=== PATIENT | male | born 1930 | race Caucasian/White ===

== ENCOUNTER 2019-05-08 23:47 | Observation (INO) | payer MEDICARE ==
[~2019-05-08] VITALS: Ht 165.1 cm
--- NOTE | ~2019-05-08 | HEMODYNAMI ---
PATIENT:RICHARD CORRAL MEDICAL RECORD: [id number] : [birth year] [facility] [id number] ADMISSION DATE: 05/09/19 Generatedon:05/09/201915:43 Patient name: RICHARD CORRAL Patient #: [id number] SS N: : 1930 Date of study: 05/09/2019 Page: Of Hemodynamic Procedure Report Patient Data Patient Demographics Procedure consent was obtained First Name: RICHARD Gender: Male Last Name: ELLIS : 1930 Middle Initial: PETER Age: 88 year(s) Patient #: [id number] Race: Additional ID: [id number] Contact details Address: [address] [place] [address] State: [place] City: [place] Zip code: [address] Past Medical History History of disease Date Diagnosis Comments CAD Hypertension Allergies: No known allergies Admission Admission Data Admission Date: 05/09/2019 Admission Time: 1:21 Room #: 2124 Lab Results Lab Result Date: 05/09/2019 Lab Result Time: 0:00 Biochemistry Name Units Result Min Max BUN mg/dl 11 --(-*--)-- 7 18 Creatinine mg/dl 1 --(--*-)-- 0.6 1.3 eGFR ml/min 75 *-(----)-- 90 120 NONAFRICAN CBC Name Units Result Min Max Hematocrit % 42.2 --(*---)-- 42 54 Hemoglobin g/dl 14.3 --(*---)-- 13.5 17.5 Procedure Procedure Types Cath Procedure Diagnostic Procedure LHC LHC w/Coronaries w/Grafts Sedation Charges Moderate Sedation up to 15 minutes Procedure Description Procedure Date Procedure Date: 05/09/2019 Procedure Start Time: 15:15 Procedure End Time: 15:38 Procedure Staff Name Function Raymundo Bautista MD Performing Physician Bertha Whitfield RT Monitor Judit Rodriguez RT Scrub Juana Henley RN Nurse Procedure Data Cath Procedure Fluoroscopy Diagnostic fluoroscopy Total fluoroscopy Time: 4.9 time: 4.9 min min Diagnostic fluoroscopy Total fluoroscopy dose: 576 dose: 576 mGy mGy Contrast Material Contrast Material Type Amount (ml) Isovue 300 93 Entry Location Entry Primary Successful Side Size Upsize Upsize Entry Closure Succes sful Closure Location (Fr) 1 (Fr) 2 (Fr) Remarks Device Remarks Femoral Right 5 Fr 6 Fr Exoseal artery Long Estimated blood loss: 5 ml Diagnostic catheters Device Type Used For End Catheter Placement MULTIPACK JL 4.0 5Fr Procedure catheter MULTIPACK JL 4.0 5Fr Procedure catheter MULTIPACK 3DRC 5Fr Procedure catheter DIAGNOSTIC AR MOD 5Fr Procedure Catheter ([id number]) MULTIPACK Pigtail 5 Fr Procedure catheter Procedure Complications No complications Procedure Medications Medication Administration Route Dosage 0.9% NaCl I.V. 100 ml/hr Oxygen etCO2 Nasal cannula 2 l/min Lidocaine 2% added to field 20 Heparin Flush Bag added to field 2 bags (1000units/500ml NS) Versed I.V. 2 mg Fentanyl I.V. 50 mcg Hemodynamics Rest HGB: 14.3 (g/dl) Heart Rate: 70 (bpm) Pressure Samples Time Site Value (mmHg) Purpose Heart Use Rate(bpm) 15:30 LV 187/18,32 Snapshot 64 15:30 AO 196/84(128) Pullback 63 15:30 LV 192/21,22 Pullback 63 Gradients Valve Time Site 1 Site 2 Mean SEP/DFP Peak To Heart Use (mmHg) (sec/min) Peak Rate (mmHg) (bpm) Aortic 15:30 LV AO 0 11 0 63 192/21,22 196/84(128) Calculations Valve P-P Mean Valve Index Valve Source Name Gradient Area Flow (cm2) Aortic 0 0 0 0 Snapshots Pre Cath Intra NCS Post Cath Vital Signs Time Heart Resp SPO2 etCO2 NIBP (mmHg) Rhythm Pain Sedation Rate (ipm) (%) (mmHg) Status Level (bpm) 15:07:02 68 16 97 20.4 Measuring NSR 0 (11) 10(A) , No pain 15:07:33 73 17 96 27.2 214/94(161) NSR 0 (11) 10(A) , No pain 15:12:05 66 14 97 31.7 209/97(164) NSR 0 (11) 10(A) , No pain 15:16:44 62 13 97 36.9 173/82(141) NSR 0 (11) 9(A) , No pain 15:21:08 61 14 97 18.1 156/80(139) NSR 0 (11) 9(A) , No pain 15:26:07 64 17 98 36.2 Measuring NSR 0 (11) 9(A) , No pain 15:26:35 65 15 99 12.8 183/90(150) NSR 0 (11) 9(A) , No pain 15:31:04 62 15 98 22.6 175/82(103) NSR 0 (11) 9(A) , No pain 15:35:28 60 15 98 19 184/83(151) NSR 0 (11) 10(A) , No pain Medications Time Medication Route Dose Verified Delivered Reason Notes Eff ectiveness by by 15:05:21 0.9% NaCl I.V. 100 Raymundo Juana used for ml/hr [place]oka Kale procedure MD FOWLER 15:05:29 Oxygen etCO2 2 Raymundo Thompsonyla used for Nasal l/min [facility] procedure cannula MD FOWLER 15:05:35 Lidocaine 2% added 20ml Raymundo Fonseca for local to vial [facility] anesthetic field MD WHITE 15:05:40 Heparin Flush added 2 Raymundo Raymunod used for Bag to bags [facility] procedure (1000units/500ml field MD WHITE NS) 15:14:35 Versed I.V. 2 mg Raymundo Caoa for LilyJamison Henley sedation MD FOWLER 15:14:46 Fentanyl I.V. 50 Raymundo Caoa for mcg Lily Kale sedation pharmaceutical development technician Log Time Note 14:45:13 Juana Henley RN sent for patient. Start room use. 14:53:47 Informed consent obtained and on chart 14:54:11 Procedure Status Elective Heart Cath (OP). 14:54:21 Time tracking: Regular hours (M-F 7:00 - 5:00) 14:54:24 Plan of Care:Hemodynamics will remain stable., Cardiac rhythm will remain stable., Comfort level will be maintained., Respiratory function will remain adequate., Patient/ family verbilizes understanding of procedure., Procedure tolerated without complication., Recovers from procedure without complications.. 14:54:32 H&P Date Dictated: 05/09/2019 New H&P dictated by physician.. 14:54:38 Patient allergic to No known allergies 14:55:37 Patient received from Med II to CCL 2 Alert and oriented. Tansferred to table in Supine position. 14:55:38 Warm blankets applied, and shayy hugger turned on for patient comfort. 14:55:39 Correct patient and procedure confirmed by team. 14:55:39 ECG and BP/O2 sat monitors applied to patient. 15:05:13 Vital chart was started 15:05:21 0.9% NaCl 100 ml/hr I.V. was administered by Juana Henley RN; used for procedure; Verbal order read back and verified. 15:05:29 Oxygen 2 l/min etCO2 Nasal cannula was administered by Juana Henley RN; used for procedure; Verbal order read back and verified. 15:05:35 Lidocaine 2% 20ml vial added to field was administered by Raymundo Bautista MD; for local anesthetic; Verbal order read back and verified. 15:05:40 Heparin Flush Bag (1000units/500ml NS) 2 bags added to field was administered by Raymundo Bautista MD; used for procedure; Verbal order read back and verified. 15:07:48 Baseline sample Acquired. 15:08:01 Rhythm: sinus rhythm 15:08:03 Full Disclosure recording started 15:08:04 Pre-procedure instructions explained to patient. 15:08:04 Pre-op teaching completed and patient verbalized understanding. 15:08:06 Family in patients room. 15:08:15 Patient NPO since Midnight. 15:08:17 Is the patient allergic to Iodine/contrast media? No. 15:09:20 Is patient on blood thinner?No 15:09:22 Patient diabetic? No. 15:09:25 Previous problem with sedation/anesthesia? No ? 15:09:28 Snore? No 15:09:29 Sleep apnea? No 15:09:31 Deviated septum? No 15:09:32 Opens mouth fully? Yes 15:09:33 Sticks out tongue? Yes 15:09:34 Airway obstruction? No ? 15:09:38 Dentures? Yes IN 15:09:41 Pre procedure: right dorsailis pedis pulse 1+ Palpable, but thready & weak; easily obliterated 15:09:44 Patient pain scale 3/10 ?. 15:09:52 IV patent on arrival in left antecubital with 0.9% NaCl at O. 15:: Lab Result : BUN 11 mg/dl :: Lab Result : Creatinine 1 mg/dl :: Lab Result : eGFR NONAFRICAN 75 ml/min :: Lab Result : Hemoglobin 14.3 g/dl 15:: Lab Result : Hematocrit 42.2 % 15:10:28 Lab results completed and on chart. 15:10:32 Stress Test: no; N/A ? 15:10:35 Right groin area was prepped with chlora-prep and draped in sterile fashion 15:10:36 Alarms reviewed by R. N. 15:10:37 Sharps counted by scrub and verified by R.N. 15:11:44 Use device set Femoral Dx 15:11:47 ACIST Syringe (59198) opened to sterile field. 15:11:47 Bag Decanter (2002S) opened to sterile field. 15:11:48 ACIST Hand Control (60188) opened to sterile field. 15:11:49 ACIST Manifold (18717) opened to sterile field. 15:11:49 Tegaderm 4 x 4 (1626W) opened to sterile field. 15:11:50 Medline Cath Pack ([id number]) opened to sterile field. 15:11:51 DIAGNOSTIC Multipack 5Fr catheter set (LR4010) opened to sterile field. 15:11:52 SHEATH 5FR Erlanger (RPA875) opened to sterile field. 15:11:52 EMERALD Guide Wire (681-964) opened to sterile field. 15:13:46 --------ALL STOP TIME OUT------ 15:13:46 Final Timeout: patient, procedure, and site verified with staff and physician. All members of the team are in agreement. 15:13:47 Right groin site verified by team. 15:13:50 Fire Safety Assessment: A--An alcohol-based skin anteseptic being used preoperatively., C--Open oxygen or nitrous oxide is being used., D--An ESU, laser, or fiber-optic light is being used. 15:13:53 Physical assessment completed. ASA score P 2 - A patient with mild systemic disease as per Raymundo Bautista MD. 15:13:56 2) 60-89 Mildly reduced kidney function, and other findings (as for stage 1) point to kidney disease. 15:13:59 Maximum allowable contrast dose (3.7 X eGFR X 0.75)208 ml. 15:14:02 Sedation plan: IV Moderate Sedation Medication:Versed, Fentanyl 15:14:35 Versed 2 mg I.V. was administered by Juana Henley RN; for sedation; Verbal order read back and verified. 15:14:46 Fentanyl 50 mcg I.V. was administered by Juana Henley RN; for sedation; Verbal order read back and verified. 15:15:17 Procedure started. 15:15:20 Local anesthetic to right femoral artery with Lidocaine 2% by Raymundo Bautista MD.INITIAL ACCESS ONLY 15:16:13 A 5 Fr sheath was inserted into the Right Femoral artery 15:16:17 Zero performed for pressure channel P1 15:16:56 Zero performed for pressure channel P1 15:17:16 A MULTIPACK JL 4.0 5Fr catheter was advanced over the wire and used for Procedure. 15:18:25 GLIDE WIRE ANGLE 260cm (OF5106) opened to sterile field. 15:19:40 GLIDE WIRE USED TO ADVANCE CATHETER 15:19:47 Catheter exchanged over wire. 15:20:19 SHEATH 6FR ARROW 45cm (CL-25238) opened to sterile field. 15:20:19 SHEATH 6FR Erlanger (RVV211) opened to sterile field. 15:20:57 Sheath upsized to a 6 Fr Long. 15:23:52 A MULTIPACK JL 4.0 5Fr catheter was advanced over the wire and used for Procedure. 15:23:57 LCA angiography performed. 15:23:59 Catheter exchanged over wire. 15:24:13 A MULTIPACK 3DRC 5Fr catheter was advanced over the wire and used for Procedure. 15:25:18 RCA angiography performed. 15:25:21 SVG to Circ angiography performed. 15:26:59 SVG to LMCA angiography performed. 15:27:16 Catheter exchanged over wire. 15:27:40 A DIAGNOSTIC AR MOD 5Fr Catheter ([id number]) was advanced over the wire and used for Procedure. 15:28:50 SVG to RCA angiography performed. 15:28:51 Catheter exchanged over wire. 15:28:57 A MULTIPACK Pigtail 5 Fr catheter was advanced over the wire and used for Procedure. 15:29:43 LV gram done using SIMMS 15::46 Injector settings: Ml/sec: 102, Volume: 0, 15:30:27 LV hemodynamics recorded. 15:30:56 EF : 55 % 15:30:58 Catheter removed. 15:31:42 LONG SHEATH EXCHANGED FOR A SHORT SHEATH 15:31:47 EXOSEAL 6Fr (EX600) opened to sterile field. 15:33:33 Sheath removed intact; hemostasis achieved with Exoseal to the Right Femoral artery. 15:33:34 Procedure ended.(Physican Out) 15:34:01 Contrast amount:Isovue 300 93ml. 15:34:52 Fluoroscopy time 04.90 minutes. 15:35:02 Fluoroscopy dose: 576 mGy 15:35:02 Flurop Dose total: 576 15:35:07 Dose Area Product 69669 mGy/cm. 15:35:12 Maximum allowable dose exceeded? No. 15:35:14 Sharps counted by scrub and verified by R.N. 15:36:37 Post-op/insertion site Right Femoral artery dressed using a 4 x 4 and Tegaderm. 15:36:39 Post-procedure physical assessment completed. ASA score P 2 - A patient with mild systemic disease as per Raymundo Bautista MD. 15:36:41 Post procedure rhythm: unchanged. 15:36:44 Estimated blood loss: 5 ml 15:36:45 Post procedure instruction explained to patient.Patient verbalizes understanding. 15:36:45 Patient needs reinforcement of post procedure teaching. 15:37:08 Procedure type changed to Cath procedure, Diagnostic procedure, LHC, LHC w/Coronaries w/Grafts, Sedation Charges, Moderate Sedation up to 15 minutes 15:37:40 Procedure and supply charges have been captured, reviewed, submitted and are correct. 15:37:42 Procedure Complication : No complications 15:37:45 Vital chart was stopped 15:37:46 [facility] Findings: mild to moderate CAD (<70%) 15:37:48 Operative report dictated upon procedure completion. 15:37:48 See physician's report for complete and final results. 15:37:52 Report given to [facility]. 15:37:55 Patient transfered to [facility] II with Bed. 15:38:28 Procedure ended. 15:38:28 Full Disclosure recording stopped 15:38:35 End room use (Document Last) 15:41:11 End room use (Document Last) 15:43:04 End room use (Document Last) Device Usage Item Name Manufacture Quantity Catalog Hospital Part Current Minimal L ot# / Number Charge Number Stock Stock Serial# Code ACIST Acist 1 65028 749381 938292 515958 20 Syringe Medical (25925) Systems Inc Bag Microtek 1 311291 93031 621436 5 Decanter Medical Inc. () ACIST Hand Acist 1 59784 687470 947664 744143 5 Control Medical (76475) Systems Inc ACIST Acist 1 15354 172876 025969 958387 5 Manifold Medical (26022) Systems Inc Tegaderm 4 3M 1 1626W 634480 748006 293760 5 x 4 (1626W) Medline Medline 1 [id number] 072898 34109 690538 5 Cath Pack ([id number]) DIAGNOSTIC Cardinal 1 SL8424 608396 08941 960473 30 Multipack Health 5Fr catheter set (UG3529) SHEATH 5FR Terumo 1 TZR051 143087 641214 491593 5 Erlanger (FRH053) EMERALD Cardinal 1 502-455 155727 237437 569785 5 Guide Wire Health (502-455) MULTIPACK Cardinal 1 605863 5 JL 4.0 5Fr Health catheter GLIDE WIRE Terumo 1 EC0339 664451 397191 534497 5 ANGLE 260cm (CT1997) SHEATH 6FR Teleflex 1 CL-08461 907947 047645 172004 5 ARROW 45cm (CL-36050) SHEATH 6FR Terumo 1 DQC392 696802 736734 394897 40 Erlanger (KEX373) MULTIPACK Cardinal 1 222483 5 3DRC 5Fr Health catheter DIAGNOSTIC Cardinal 1 [id number] 609894 044383 714550 15 AR MOD 5Fr Health Catheter (991962L) MULTIPACK Cardinal 1 823036 5 Pigtail 5 Health Fr catheter EXOSEAL 6Fr Cardinal 1 EX600 801623 047715 481852 10 (EX600) Health Signature Audit [place] Stage Time Signature Unsigned Intra-Procedure 05/09/2019 Judit Rodriguez 3:41:12 PM RT(R) Intra-Procedure 05/09/2019 Juana Henley 3:43:04 PM RN Intra-Procedure 05/09/2019 Raymundo Farrar 3:43:41 PM Jamison WHITE Signatures Performing Physician : Signature : Raymundo Bautista MD Date : Time : Monitor : Bertha Whitfield RT Signature : Date : Time : Nurse : Juana Henley RN Signature : Date : Time : [facility] [address] [place] [address]
[~2019-05-08 23:47] MED LIST: ALTACE5 MG PO; ASPIRIN81 MG PO; FISH OIL 1,2001 CAP PO; FLOMAX0.4 MG PO; GLUCOPHAGE500 MG PO; ISOSORBIDE MONO60 M1 PO; PLAVIX75 MG PO; PRAVACHOL40 MG PO; PREVACID30 MG PO; PRILOSEC20 MG PO; VITAMIN B-6200 M1 PO
[2019-05-08] MEDS ORDERED: FERGON 240 MG240 MG PO (23:52)
[2019-05-08] MEDS ORDERED: FLOMAX0.4 MG PO (23:53)
[2019-05-09] VITALS (10 sets, daily range): BP systolic 105–169; BP diastolic 51–76; Ht 165.1 cm
[2019-05-09 00:24] LABS: APTT 33.3 SECONDS (22.8-39.4); INR 1.12 (0.85-1.17); PROTIME 14.4 SECONDS (11.6-15.0)
[2019-05-09 00:25] LABS: CALC OSMOLALITY 273 mosm/kg (275-300); CALCIUM 8.3 mg/dL (8.5-10.1); CARBON DIOXIDE 29.6 mmol/L (21.0-32.0); CHLORIDE - SERUM 102 mmol/L (98-107); GLUCOSE 112 mg/dL (74-106); SODIUM 137 mmol/L (136-145); UREA NITROGEN 11 mg/dL (7-18); eGFR NON AFRICAN AMERICAN 75 mL/min (90-120)
[2019-05-09 00:27] LABS: BASOPHILS 0.2 % (0-2); EOSINOPHILS 0.2 % (0-7); HEMATOCRIT 42.2 % (42.0-54.0); HEMOGLOBIN 14.3 g/dL (13.5-17.5); IMMATURE GRANULOCYTES 0.5 % (0-5); LYMPHOCYTES 30.8 % (15-50); MCH 31.3 pg (26.0-34.0); MCHC 33.9 g/dL (31.0-37.0); MCV 92.3 fL (80.0-100.0); MEAN PLATELET VOLUME 9.2 fL (7.4-10.4); MONOCYTES 12.8 % (2-11); NEUTROPHILS 55.5 % (40-80); PLATELET COUNT 224 10x3/uL (130-400); RBC 4.57 10x6/uL (4.20-6.10); RDW 13.6 % (11.5-14.5); WBC 4.2 10x3/uL (4.8-10.8)
[2019-05-09 00:34] LABS: ALBUMIN 3.2 g/dL (3.4-5.0); ALKALINE PHOSPHATASE 80 U/L (46-116); ALT (SGPT) 19 U/L (10-68); BILIRUBIN - TOTAL 0.49 mg/dL (0.2-1.3); CKMB 0.6 U/L (0.0-3.6); CREATINE KINASE 39 UL (21-232); MAGNESIUM - SERUM 1.8 mg/dL (1.8-2.4); PROTEIN - SERUM 7.1 g/dL (6.4-8.2)
[2019-05-09 00:35] LABS: TROPONIN-I < 0.017 ng/mL (0.000-0.060)
--- NOTE | 2019-05-09 01:26 | NUR ---
PT DENIES CURRENT NEEDS. WILL CONTINUE TO MONITOR.
[2019-05-09 02:20] LABS: CKMB 0.6 U/L (0.0-3.6); CREATINE KINASE 38 UL (21-232); TROPONIN-I < 0.017 ng/mL (0.000-0.060)
--- NOTE | 2019-05-09 03:29 | NUR ---
PT RESTING SUPINE, EYES OPEN. PT REQUESTS BLANKET AT THIS TIME. PT DENIES FURTHER NEEDS AT THIS TIME. WILL CONTINUE TO MONITOR.
--- NOTE | 2019-05-09 06:03 | NUR ---
PT AMBULATED TO RESTROOM AT THIS TIME, STEADY GAIT NOTED. PT DENIES CURRENT NEEDS. WILL CONTINUE TO MONITOR.
[2019-05-09] MEDS ORDERED: ISOSORBIDE MONO60 M1 PO (07:54)
--- NOTE | 2019-05-09 07:57 | NUR ---
PT AWAKE WATCHING TV, ASKING ABOUT MORNING MEDS. WILL ASK WHEN HE MAKES HIS ROUNDS THIS MORNING.
--- NOTE | 2019-05-09 08:02 | NUR ---
LAB DRAW AT THIS TIME.
[2019-05-09 08:35] LABS: CKMB 0.7 U/L (0.0-3.6); CREATINE KINASE 35 UL (21-232); TROPONIN-I < 0.017 ng/mL (0.000-0.060)
--- NOTE | 2019-05-09 09:35 | NUR ---
DR. GERMAN AWARE OF PT.
--- NOTE | 2019-05-09 10:42 | NUR ---
PT STATES HE IS READY TO GO HOME IF HE IS NOT GOING TO BE ADMITTED TO THE HOSPITAL. EXPLAIN WE ARE STILL WAITING ON A ROOM, DR. CUENCA SHOULD BE BY TO SEE YOU SOON. INFORMED CHARGE NURSE.
--- NOTE | 2019-05-09 11:10 | NUR ---
PTS FAMILY AT BEDSIDE. INFORM T WE HAVE A ROOM FOR HIM IT IS BEING CLEANED. PT STATES HE UNDERSTANDS AND IS WILLING TO STAY.
--- NOTE | 2019-05-09 11:17 | NUR ---
PT STATES HE DOES NOT HAVE DIABETES, WAS TESTED AND STATES HIS SUGAR GOES UP WHEN HE EATS SWEETS BUT GOES RIGHT BACK TO NORMAL.
--- NOTE | 2019-05-09 12:27 | NUR ---
ALERT AND ORIENTED. SL TO RIGHT AC. TELEMERTY SHOWS SR. GETTING READY FOR CATH
--- NOTE | 2019-05-09 12:49 | NUR ---
ASSESSMENT COMPLETE RESP UNLABORED SKIN W/D PT BEING PREOP AT THIS TIME FOR COUNSELING CENTER DIRECTOR TELEMETRY SR RATE 63 DENIES ANY CHEST PAIN
[2019-05-09 12:54] LABS: CHOL - HDL RATIO 2.7 ratio (2.3-4.9); LDL-HDL RATIO 1.4 ratio (1.5-3.5)
--- NOTE | 2019-05-09 13:59 | NUR ---
PT C/O CHEST PAIN.NTG GIVEN X 2 WITH RELIEF OF PAIN. B/P 146/80
[2019-05-09 14:35] LABS: CKMB 0.7 U/L (0.0-3.6); CREATINE KINASE 42 UL (21-232); TROPONIN-I < 0.017 ng/mL (0.000-0.060)
--- NOTE | 2019-05-09 16:11 | NUR ---
BACK FROM [facility]. NO INTERVENTION DONE. RIGHT GROIN SOFT WITH DRSG DRY AND INTACT. PPP. TELEMERTY SHOWS SR. SR UP WITH CALL LIGHT IN REACH
--- NOTE | 2019-05-09 20:22 | NUR ---
DISCHARGED INSTRUCTION GIVEN, IV-REMOVED CATH. INTACT, TELEMTRY REMOVED, TAKEN DOWN VIA WHEELCHAIR
--- NOTE | 2019-05-12 08:28 | OP ---
PATIENT NAME: RICHARD CORRAL MEDICAL RECORD: [id number] :[birth year] LOCATION:D.M2 D.2124 ADMISSION DATE:05/09/19 SURGEON: KATIA SAINZ MD DATE OF OPERATION: 05/09/2019 PROCEDURE: Left heart catheterization, selective coronary angiography, right femoral artery approach. CATHETERS: Long 6-Spanish sheath, we changed this to marked tortuosity of the aorta. 5/4 left and right Charlene, 5/4 pig. The procedure was well tolerated. The patient was returned to villalobos. Sheath was removed. ExoSeal device placed. FINDINGS: Left ventriculography in 30-degree SIMMS view: Normal wall motion, normal systolic function. CORONARY ANATOMY: LEFT MAIN: Left main is free of disease. LAD: Fills for a short period of time and is totally occluded. CIRCUMFLEX: Gives rise to 1 large OM and is totally occluded. RIGHT CORONARY ARTERY: Totally occluded in its mid portion. Saphenous vein graft to the circumflex system widely patent throughout its course. No evidence of post-anastomotic stenosis. saphenous vein graft to the right widely patent throughout its course. No evidence of post-anastomotic stenosis. MCGILL to LAD again widely patent. No evidence of post-anastomotic stenosis. TRANSINT:[id number] Voice Confirmation ID: [id number] DOCUMENT ID: [id number] KATIA SAINZ MD at 0828 CC: [id number] DICTATION DATE: 05/09/19 1542 CNC MACHINIST 2ND SHIFT: 05/09/19 2346 DIS IN 05/09/19 [address] [place] [address]
--- NOTE | 2019-05-12 08:28 | CN ---
PATIENT NAME:RICHARD CORRAL MEDICAL RECORD: [id number] : [birth year] LOCATION:D.[address] D.2124 ADMIT DATE: 05/09/19 ACCOUNT: [id number] CONSULTING PHYSICIAN: KATIA SAINZ MD REFERRING PHYSICIAN: KYLE CUENCA MD DATE OF CONSULTATION: 05/09/2019 HISTORY OF PRESENT ILLNESS: An 88-year-old gentleman with a known history of coronary artery disease, status post coronary artery bypass grafting. He has a history of well-controlled angina, on long-acting nitrates. However, the past week has been having more angina typically relieved, occurring with exertion, although notes more effort intolerance. This morning, he was awakened with rest angina, not relieved with 3 nitroglycerins sublingually administered in ER, required morphine and additional nitroglycerin for pain relief. We are asked to see him concerning his cardiovascular status. PAST MEDICAL HISTORY: Includes: 1. History of hypertension. 2. Hyperlipidemia. 3. Coronary artery disease as described above. ALLERGIES: None known. MEDICATIONS: Include aspirin 81 every day, Altace 5 mg p.o. b.i.d., pravastatin 40 every day, isosorbide 120 every day, and Flomax 0.4 every day. SOCIAL HISTORY: Nonsmoker, nondrinker. Easily takes care of his ADLs, not able to exercise like previously secondary to having dementia at this point. REVIEW OF SYSTEMS: The patient reports easy bruising but reports no swollen glands. The patient reports no fever, no night sweats, no significant weight gain, no significant weight loss. No significant exercise tolerance. The patient reports no dry eyes, no irritation, no vision change. Patient reports no difficulty hearing and no ear pain. Patient reports no frequent nose bleeds or nose and sinus problems. Patient reports on arm pain on exertion. No shortness of breath while lying down. No history of heart murmur. Patient reports no cough, no wheezing or coughing up blood. Patient reports no abdominal pain, no vomiting. Normal appetite. No diarrhea and not vomiting blood. No nausea and no constipation. Patient reports no incontinence. No difficulty urinating. No hematuria. No increased frequency. Patient reports no muscle aches. No weakness, no arthralgias, no back pain. No swelling of the extremities. Patient reports no abnormal mole, no jaundice, no rashes. Reports no loss of consciousness. No weakness and no numbness. No seizures, dizziness, or headaches. The patient reports no depression, no sleep disturbance, feeling safe in a relationship and no alcohol abuse. Patient reports on fatigue. Reports no runny nose or sinus pressure. No itching, no hives, and no frequent sneezing. PHYSICAL EXAMINATION: GENERAL: WEll-developed gentleman, he appears younger than stated age. VITAL SIGNS: 121/67, pulse 63 and regular. HEENT: Normocephalic, atraumatic. NECK: No bruits are noted. HEART: Regular. II/ systolic ejection murmur. LUNGS: Good air excursion. CONSULT REPORT [id number] RICHARD CORRAL ABDOMEN: Soft, nontender. EXTREMITIES: Pulses 2+ with no edema. NEUROLOGIC: Grossly intact. DIAGNOSTIC DATA: ECG shows poor R-wave progression, nonspecific ST-T changes. IMPRESSION: Acute coronary syndrome. At this point in time, class 3-4 angina, angiography intervention based on above. TRANSINT:[id number] Voice Confirmation ID: [id number] DOCUMENT ID: [id number] KATIA SAINZ MD at 0828 CC: [id number] DICTATION DATE: 05/09/19 1315 HEALTH TECHNICAL WRITER: 05/09/19 2247 DIS IN 05/09/19 [address] [place] [address]
== END 2019-05-09 20:24 | disposition home or self-care (01) ==
LOC: D.ER 23:47 → D.M2 05-09 01:21 → OBSVTIME 05-09 11:18 → D.M2 05-09 20:24
PROVIDERS: Emergency Medicine; Internal Medicine Interventional Cardiology; ADMIT Internal Medicine Nephrology; ATTEND Internal Medicine Nephrology
DX: I24.9 Acute ischemic heart disease, unspecified (principal); I10 Essential (primary) hypertension; E78.5 Hyperlipidemia, unspecified; Z95.1 Presence of aortocoronary bypass graft; E11.9 Type 2 diabetes mellitus without complications; I25.110 Atherosclerotic heart disease of native coronary artery with unstable angina pectoris; Z85.46 Personal history of malignant neoplasm of prostate